=== PATIENT | female | born 1960 | race Caucasian/White ===

== ENCOUNTER 2017-02-20 02:44 | Observation (INO) | payer BC ==
[~2017-02-20 02:44] MED LIST: FLINTSTONE1 TAB.CHEW; TOPROL XL25 MG; TOPROL XL50 M1 PO
[2017-02-20] MEDS ORDERED: ASPIRIN81 M1 PO (02:58)
[2017-02-20 03:20] LABS: BASO % 0.5 % (0-2); EOS % 2.5 % (0-7); EOSINOPHIL ABSOLUTE COUNT 0.2 tho/cmm (0.0-0.7); HCT-HEMATOCRIT 43.5 % (34.0-49.0); IMMATURE GRANULOCYTES ABSOLUTE 0.01 tho/cmm (0-0.03); IMMATURE GRANULOCYTES PERCENT 0.1 % (0-0.3); LYMPH % 44.9 % (20-45); LYMPH ABSOLUTE COUNT 3.8 tho/cmm (0.8-4.5); MCH (MEAN CORPUSCULAR HGB) 29.6 pg (28.0-32.0); MCHC MEAN CORPUSCULAR HGB CONC 32.2 % (32.0-36.0); MEAN PLATELET VOLUME 10.2 cmc (9.4-12.4); MONOCYTE ABSOLUTE COUNT 0.8 tho/cmm (0.0-1.2); NEUTROPHIL ABSOLUTE COUNT 3.7 tho/cmm (1.6-8.0); NEUTROPHIL-AUTOMATED 3.7 tho/cmm (1.6-8.0); PLATELET COUNT 236 tho/cmm (150-450); RED BLOOD COUNT 4.73 mil/cmm (4.00-5.20); RED CELL DISTRIBUTION WIDTH 13.5 % (12.4-16.4); WHITE BLOOD COUNT 8.5 tho/cmm (4.0-10.0)
[2017-02-20 03:38] LABS: ALB/GLOB RATIO 0.9 (0.8-2.0); ALBUMIN 3.6 g/dl (3.5-5.0); ALKALINE PHOSPHATASE 127 U/L (33-138); ALT/SGPT 18 U/L (12-78); BILIRUBIN,TOTAL 0.4 mg/dl (0-1.5); BLOOD UREA NITROGEN 12 mg/dl (6-24); CALCIUM 8.9 mg/dl (8.5-10.5); CARBON DIOXIDE-VENOUS 22 mmol/L (22-32); CHLORIDE 108 mmol/l (96-110); CREATININE 0.69 mg/dl (0.50-1.10); GLUCOSE 104 mg/dL (70-110); SODIUM 140 mmol/L (135-145); eGFR VALUE FOR BLACK >90 mL/Min
[2017-02-20 03:46] LABS: ANION GAP 14 mmol/L (0-20); AST/SGOT 25 U/L (10-40); POTASSIUM 3.6 mmol/L (3.7-5.1)
== END 2017-02-20 12:35 ==
LOC: EDMED 02:44 → EMR2 04:52 → CAR1 05:17
PROVIDERS: Emergency Medicine; ADMIT Internal Medicine Cardiovascular Disease
DX: R07.9 Chest pain, unspecified (principal); R00.0 Tachycardia, unspecified; Z79.82 Long term (current) use of aspirin; Z79.899 Other long term (current) drug therapy; Z88.1 Allergy status to other antibiotic agents; Z88.2 Allergy status to sulfonamides; Z88.8 Allergy status to other drugs, medicaments and biological substances; Z90.49 Acquired absence of other specified parts of digestive tract; Z90.710 Acquired absence of both cervix and uterus
CPT/HCPCS: A9500; G0378